=== PATIENT | male | born 1960 | race Caucasian/White ===

== ENCOUNTER 2021-01-10 06:48 | Outpatient (CLI) | payer MEDICAID, SELFPAY ==
--- NOTE | 2021-01-10 07:15 | USCV_ITS ---
Georgia Eller Felipe Age: 60 Gender: M : 1960 Exam Date: 01/10/2021 07:23 Ordering Phys: Pranay Rojas M.D ([email or web address]) Technologist: Exam Location: [facility] [place] Indication: LEG PAIN CLAUDICATION Risk Factors: Previous Vascular Surgery: RIGHT LEFT BP: 120.0 / 70.00 BP: 120.0/ 70.00 0 0 Waveform Velocity (cm/s) Velocity (cm/s) Waveform Triphasic 75.4 Iliac Prox 35.6 Triphasic Triphasic 57.2 Iliac Mid 36.4 Triphasic Triphasic 56.7 Iliac Distal 41.2 Triphasic Triphasic 63.7 CALL OR CONTACT CENTRE TEAM LEADER 34.5 Triphasic Triphasic 53.5 SFA Prox 38.6 Triphasic Triphasic 55.1 SFA Mid 67.1 Triphasic Triphasic 57.8 SFA Dist 64.1 Triphasic Triphasic 44.8 POP 34.3 Triphasic Triphasic 30.8 TIRE SERVICE SUPERVISOR 45.0 Triphasic Triphasic 32.0 DPA 33.8 Biphasic 1.0 ERIC 1.0 FINDINGS Mild diffuse plaques in the right iliac and femoral artery. Mild to moderate diffuse plaques in the left femoral system. Normal resting ABIs bilaterally Normal arterial Doppler waveforms and Doppler velocities CONCLUSIONS To moderate diffuse plaques in the left femoral artery. Mild diffuse plaques in the right iliac and femoral arteries Normal resting ABIs bilaterally No significant arterial obstruction, based on the above findings Dr Beckie Ruiz MD [facility] (Electronically Signed) Final Date: 11 January 2021 06:45 S
== END 2021-01-10 06:49 | disposition home or self-care (01) ==
LOC: US 06:49
PROVIDERS: PCP Internal Medicine; Visit Provider Internal Medicine
DX: I73.9 Peripheral vascular disease, unspecified (principal); M79.604 Pain in right leg; M79.605 Pain in left leg; I70.8 Atherosclerosis of other arteries
CPT/HCPCS: 93925

== ENCOUNTER → 2022-06-12 12:56 | Outpatient (BNVA) | payer MEDICAID, SELFPAY | PROVIDERS: PCP Internal Medicine; Visit Provider Internal Medicine | DX: I25.10 Atherosclerotic heart disease of native coronary artery without angina pectoris (principal); I42.9 Cardiomyopathy, unspecified; E78.5 Hyperlipidemia, unspecified; I10 Essential (primary) hypertension; I73.9 Peripheral vascular disease, unspecified; F17.210 Nicotine dependence, cigarettes, uncomplicated; I25.2 Old myocardial infarction | CPT/HCPCS: 99214 ==

== ENCOUNTER 2022-12-03 14:04 | Outpatient (CLI) | payer MEDICAID, SELFPAY ==
--- NOTE | 2022-12-03 14:16 | CT_ITS ---
WS: [id number] LDCT LUNG CANCER SCREENING HISTORY: HX OF TOBACCO USE TECHNIQUE: Axial imaging performed from the apices to 1 cm below the costophrenic angles. Coronal and sagittal reformats are submitted with axial MIP series. All CT scans at [facility] use at least one of these dose optimization techniques: automated exposure control; mA and/or kV adjustment per patient size (includes targeted exams where dose is matched to clinical indication); or iterativ e reconstruction. DLP: 41.89 mGy.cm DIvol: Mean CTDIvol: 0.50 (mGy) COMPARISON: None available. Diagnostic quality: Satisfactory Lungs: Severe hyperexpansion with centrilobular and paraseptal emphysema. Interstitial thickening and a few small areas of reticular nodularity in the periphery. 3 mm nodule at the RIGHT lung base. 7 mm nodule at the LEFT lung base. Additional 6 mm nodule at the LEFT lung base. 5 mm nodule central LEFT upper lobe. Heart: Normal size heart with no pericardial effusion.. Other findings: Moderate coronary artery calcifications. No mediastinal or hilar adenopathy. Small me diastinal and hilar lymph nodes. Adrenal glands are poorly visualized. CT/CT lung screening [id number] IMPRESSION: LUNG-RADS: 3-Probably Benign FOLLOW UP: 6 Month LDCT OTHER FINDINGS (S MODIFIER): None.
== END 2022-12-03 14:05 | disposition home or self-care (01) ==
PROVIDERS: PCP Family Medicine; Visit Provider Family Medicine
DX: Z12.2 Encounter for screening for malignant neoplasm of respiratory organs (principal); Z87.891 Personal history of nicotine dependence
CPT/HCPCS: 71271

== ENCOUNTER → 2023-06-11 12:47 | Outpatient (BNVA) | payer MEDICAID, SELFPAY | PROVIDERS: PCP Family Medicine; Visit Provider Internal Medicine | DX: I25.10 Atherosclerotic heart disease of native coronary artery without angina pectoris (principal); Z72.0 Tobacco use; I42.9 Cardiomyopathy, unspecified; E78.5 Hyperlipidemia, unspecified; I10 Essential (primary) hypertension; I73.9 Peripheral vascular disease, unspecified; I25.2 Old myocardial infarction | CPT/HCPCS: 99214 ==

== ENCOUNTER 2023-06-25 11:58 | Outpatient (CLI) | payer MEDICAID, SELFPAY ==
--- NOTE | 2023-06-25 12:03 | MR_ITS ---
WS: [id number] MRI CERVICAL SPINE NONCONTRAST TECHNIQUE: Sagittal T1, T2 and STIR imaging. Axial T2, gradient, and fiesta imaging. CLINICAL INFORMATION: RADICULOPATHY CERVICAL REGION COMPARISON: None. FINDINGS: Mild cervical curve. Straightening of the normal cervical lordosis. Cord signal is normal. Mild spond ylitic changes. C2-C3: Mild facet arthropathy. Spinal canal and foramen are patent. C3-C4: Moderate RIGHT facet arthropathy. Moderate RIGHT and mild LEFT bony foraminal narrowing. Spina l canal is patent. C4-C5: Disc osteophyte complex with endplate ridging. Tiny central protrusion. Moderate RIGHT and mil d LEFT bony foraminal narrowing. Mild facet arthropathy. C5-C6: Disc osteophyte complex with endplate ridging. Mild facet arthropathy. Mild RIGHT greater than LEFT bony foraminal narrowing. Moderate facet arthropathy. Tiny central protrusion. C6-C7: Disc osteophyte complex with endplate ridging. Mild LEFT greater than RIGHT bony foraminal nisha rowing. Spinal canal is patent. C7-T1: Mild bilateral bony foraminal narrowing. Spinal canal is patent. Visualized brain stem structures: Normal. Prevertebral soft tissues: Normal. IMPRESSION: 1. Straightening of the normal cervical lordosis with mild spondylitic changes. 2. No significant central canal stenosis. 3. Tiny central protrusions C4-C5 C5-C6 and C6-C7. 4. Multilevel mild to moderate bony foraminal narrowing worse at RIGHT C3-C4, bilateral C4-5, RIGHT C5-C6, and bilateral C6-7. 5. Moderate facet arthropathy worse at RIGHT C3-C4, bilateral C4-5, LEFT C5-C6.
== END 2023-06-25 11:59 | disposition home or self-care (01) ==
LOC: RAD 11:59
PROVIDERS: PCP Family Medicine; Visit Provider Family Medicine
DX: M47.22 Other spondylosis with radiculopathy, cervical region (principal); M48.02 Spinal stenosis, cervical region
CPT/HCPCS: 72141

== ENCOUNTER 2023-07-25 08:10 | Outpatient (CLI) | payer MEDICAID, SELFPAY ==
--- NOTE | 2023-07-25 08:16 | CT_ITS ---
WS: [id number] LDCT LUNG CANCER SCREENING HISTORY: NICOTINE DEPENDENCE,CIGARETTES TECHNIQUE: Axial imaging performed from the apices to 1 cm below the costophrenic angles. Coronal and sagittal reformats are submitted with axial MIP series. All CT scans at [facility] use at least one of these dose optimization techniques: automated exposure control; mA and/or kV adjustment per patient size (includes targeted exams where dose is matched to clinical indication); or iterativ e reconstruction. DLP: 63.52 mGy.cm DIvol: Mean CTDIvol: 0.80 (mGy) COMPARISON: 12/03/2022 Diagnostic quality: Satisfactory Lungs: Severe emphysema. Centrilobular and paraseptal emphysema with large bulla. There are several n oncalcified pulmonary nodules. These nodules are predominantly in the lower lung castillo with no incre ase in size since 12/03/2022. The largest nodule LEFT lower lobe is stable at 5.6 mm. No pneumonia. Heart: Normal size heart with no pericardial effusion.. Other findings: Ectatic atherosclerosis aorta. Pulmonary artery is not dilated. There are a few media stinal and hilar lymph nodes which are not increasing in size. Coronary artery calcification. Small h iatal hernia. No adrenal mass. IMPRESSION: CT/CT lung screening [id number] LUNG-RADS: 2-Benign Appearance or Behavior FOLLOW UP: 12 Month: Continue annual screening with LDCT OTHER FINDINGS (S MODIFIER): None.
== END 2023-07-25 08:11 | disposition home or self-care (01) ==
LOC: RAD 08:10
PROVIDERS: PCP Family Medicine; Visit Provider Family Medicine
DX: Z12.2 Encounter for screening for malignant neoplasm of respiratory organs (principal); F17.210 Nicotine dependence, cigarettes, uncomplicated; J43.2 Centrilobular emphysema; R91.8 Other nonspecific abnormal finding of lung field
CPT/HCPCS: 71271

== ENCOUNTER → 2023-10-02 08:40 | Outpatient (BNVA) | payer MEDICAID, SELFPAY | PROVIDERS: PCP Family Medicine; Visit Provider Anesthesiology Pain Medicine | DX: M54.12 Radiculopathy, cervical region (principal); M47.812 Spondylosis without myelopathy or radiculopathy, cervical region; M48.02 Spinal stenosis, cervical region | CPT/HCPCS: 99204 ==

== ENCOUNTER → 2023-10-07 14:29 | Outpatient (BNVA) | payer MEDICAID, SELFPAY | PROVIDERS: PCP Family Medicine; Visit Provider Anesthesiology Pain Medicine | DX: M79.18 Myalgia, other site (principal); M50.10 Cervical disc disorder with radiculopathy, unspecified cervical region | CPT/HCPCS: 20553; 99214 ==

== ENCOUNTER → 2023-11-05 08:42 | Outpatient (BNVA) | payer MEDICAID, SELFPAY | PROVIDERS: PCP Family Medicine; Visit Provider Anesthesiology Pain Medicine | DX: M48.02 Spinal stenosis, cervical region; M47.812 Spondylosis without myelopathy or radiculopathy, cervical region; M50.10 Cervical disc disorder with radiculopathy, unspecified cervical region | CPT/HCPCS: 99214 ==

== ENCOUNTER → 2024-07-13 13:30 | Outpatient (BNVA) | payer MEDICAID, SELFPAY | PROVIDERS: PCP Family Medicine; Visit Provider Internal Medicine | DX: I25.10 Atherosclerotic heart disease of native coronary artery without angina pectoris (principal); Z72.0 Tobacco use; I42.9 Cardiomyopathy, unspecified; E78.5 Hyperlipidemia, unspecified; I10 Essential (primary) hypertension; I73.9 Peripheral vascular disease, unspecified; I25.2 Old myocardial infarction; I95.9 Hypotension, unspecified | CPT/HCPCS: 99214 ==

== ENCOUNTER 2024-09-14 09:41 | Outpatient (CLI) | payer MEDICAID, SELFPAY ==
--- NOTE | 2024-09-14 10:12 | CT_ITS ---
WS: [id number] LDCT LUNG CANCER SCREENING TECHNIQUE: Noncontrast CT of the chest with coronal and sagittal reformatted images. CLINICAL INFORMATION: HX OF TOBACCO USE COMPARISON: 07/25/2023 DLP: 50.90 mGy.cm DIvol: Mean CTDIvol: 0.70 (mGy) All CT scans at [facility] use at least one of these dose optimization techniques: automated exposure control; mA and/or kV adjustment per patient size (includes targeted exams where dose is matched to clinical indication); or iterative reconstruction. FINDINGS: Advanced chronic emphysematous change. Bulla formation in the upper lobes. Several small noncalcified pulmonary nodules in the lower lobes unchanged from previous. Largest nodule LEFT lower lobe measures 5.7 mm. Stable noncalcified nodule in the lingula measuring 5 mm. Stable 6 mm nodule RIGHT upper lobe. No new suspicious pulmonary parenchymal normalities. A few calcified granulomas. Aortic calcification. No mediastinal or hilar lymphadenopathy. Coronary artery calcification. Small esophageal hernia. Mild thoracic curve. CT/CT lung screening [id number] IMPRESSION: LUNG-RADS: 2-Benign Appearance or Behavior FOLLOW UP: 12 Month: Continue annual screening with LDCT
== END 2024-09-14 09:42 | disposition home or self-care (01) ==
PROVIDERS: PCP Family Medicine; Visit Provider Family Medicine
DX: Z12.2 Encounter for screening for malignant neoplasm of respiratory organs (principal); Z87.891 Personal history of nicotine dependence; J43.8 Other emphysema; R91.8 Other nonspecific abnormal finding of lung field; J84.10 Pulmonary fibrosis, unspecified; I70.0 Atherosclerosis of aorta; I25.10 Atherosclerotic heart disease of native coronary artery without angina pectoris; K44.9 Diaphragmatic hernia without obstruction or gangrene; M43.8X4 Other specified deforming dorsopathies, thoracic region
CPT/HCPCS: 71271

== ENCOUNTER → 2025-05-12 14:16 | Outpatient (BNVA) | payer MEDICAID, SELFPAY | PROVIDERS: PCP Family Medicine; Visit Provider Nurse Practitioner Family | DX: I25.10 Atherosclerotic heart disease of native coronary artery without angina pectoris (principal); I42.9 Cardiomyopathy, unspecified; I10 Essential (primary) hypertension; E78.5 Hyperlipidemia, unspecified; I73.9 Peripheral vascular disease, unspecified; Z72.0 Tobacco use; Z95.5 Presence of coronary angioplasty implant and graft; I25.2 Old myocardial infarction | CPT/HCPCS: 99213 ==

== ENCOUNTER 2025-06-22 07:58 | Outpatient (CLI) | payer MEDICAID, SELFPAY ==
--- NOTE | 2025-06-22 08:15 | USCV_ITS ---
Feilpe Ho Age: 64 Gender: M : 1960 Exam Date: 06/22/2025 08:16 Ordering Phys: Linnea Richardson NP Technologist: NORMA Exam Location: [facility] [place] Indication: AAA HISTORY: Diameter (cm) AP x Transverse x Length Velocity (cm/s) Waveform Prox Aorta: 1.56 x 1.68 x 23.20 Triphasic Mid Aorta: 1.59 x 1.73 x 26.40 Triphasic Distal Aorta: 2.33 x 2.33 x 34.30 Triphasic Right Iliac Prox: 0.93 x 1.11 x 115.90 Triphasic Left Iliac Prox: 1.03 x 1.19 x 97.60 Triphasic Stent Prox Landing x x Aneurysmal Sac Max x x Lt Lat Sac Dim Rt Lat Sac Dim Stent Dist Landing x x Right Iliac Stent x x Left Iliac Stent x x Right Renal Art Left Renal Art FINDINGS: CONCLUSIONS Slightly ectatic distal abdominal aorta measuring 2.3 x 2.3cm AP x trans Normal iliac arteries Moderate atheromatous disease Gaurang Church MD (Electronically Signed) Final Date: 22 June 2025 16:54 S
== END 2025-06-22 07:59 | disposition home or self-care (01) ==
PROVIDERS: PCP Family Medicine; Visit Provider Nurse Practitioner Family
DX: Z72.0 Tobacco use (principal); I77.811 Abdominal aortic ectasia; I51.89 Other ill-defined heart diseases
CPT/HCPCS: 76706